=== PATIENT | male | born 2005 | race Caucasian/White ===

== ENCOUNTER 2023-03-06 15:06 | Emergency (ER) | payer BC ==
[~2023-03-06] VITALS: Ht 170.2 cm; Wt 99.8 kg
[2023-03-06 15:10] VITALS: BP_SYST 127
--- NOTE | 2023-03-06 15:10 | NUR ---
Patient triaged and placed in waiting room. VSS and patient appears in no acute distress at this time. Accompanied by SELF, awaiting available bed, and MD notified of need for MSE.
--- NOTE | 2023-03-06 15:10 | NUR ---
ER DR. COTTER EXAMINING PT IN TRIAGE
--- NOTE | 2023-03-06 16:20 | NUR ---
Patient to ER bed CH.1 to gown for evaluation. Side rails up.
--- NOTE | 2023-03-06 16:27 | NUR ---
COVID AND INFLUENZA SWABS DONE AND SENT TO LAB
--- NOTE | 2023-03-06 17:24 | NUR ---
Assuming care of patient
[2023-03-06] MEDS ORDERED: IBUP-1971 PO (17:39)
[2023-03-06] MEDS ORDERED: PSEU30TA36 PO (17:39)
--- NOTE | 2023-03-06 17:53 | NUR ---
Patient given written and verbal discharge instructions and verbalizes understanding. ER MD discussed with patient the results and treatment provided. Patient in stable condition. ID arm band removed. Rx of Ibuprofen and Sudafed sent to pharmacy on file. Patient educated on pain management and to follow up with PMD. Pain Scale . Opportunity for questions provided and answered. Patient walked out stable a&ox4
== END 2023-03-06 17:53 | disposition home or self-care (01) ==
LOC: SED 15:06
DX: J40 Bronchitis, not specified as acute or chronic (principal); R05.9 Cough, unspecified; R09.81 Nasal congestion; J02.9 Acute pharyngitis, unspecified; Z88.1 Allergy status to other antibiotic agents; Z79.899 Other long term (current) drug therapy; Z20.822 Contact with and (suspected) exposure to COVID-19
CPT/HCPCS: 36415; 71045; 99284

== ENCOUNTER 2024-05-02 20:38 | Emergency (ER) | payer BC ==
[~2024-05-02] VITALS: Ht 172.7 cm; Wt 127.0 kg
[2024-05-02 20:38] VITALS: BP_SYST 162; PULSE 105; RESP 20; TEMP 98; O2SAT 95
[~2024-05-02 20:38] MED LIST: IBUP-1971 PO; PSEU30TA36 PO
[2024-05-02] MEDS: ASPIRIN 325 MG TABLET PO ONE (20:52)
[2024-05-02 21:01] LABS: BASOPHILS # (AUTO) 0.1 K/uL (0.0-0.2); BASOPHILS % (AUTO) 0.5 % (0.0-2.0); EOSINOPHILS # (AUTO) 0.7 K/uL (0.0-0.4); EOSINOPHILS % (AUTO) 4.9 % (0.0-4.0); HEMATOCRIT 47.8 % (36-54); LYMPHOCYTES # (AUTO) 2.6 K/uL (1.0-5.5); LYMPHOCYTES % (AUTO) 18.9 % (20.5-51.5); MEAN CORPUSCULAR HEMOGLOBIN 28 pg (27-31); MEAN CORPUSCULAR HGB CONC 33 % (32-36); MEAN CORPUSCULAR VOLUME 85 fL (79.0-98.0); MONOCYTES # (AUTO) 1.3 K/uL (0.0-1.0); MONOCYTES % (AUTO) 9.2 % (1.7-9.3); NEUTROPHILS # (AUTO) 9.2 K/uL (1.8-7.7); NEUTROPHILS % (AUTO) 66.5 % (40.0-70.0); PLATELET COUNT (AUTO) 316 K/uL (130-430); RED BLOOD CELL COUNT(AUTO) 5.65 MIL/uL (4.2-6.2); RED CELL DISTRIBUTION WIDTH 14.1 % (9.0-15.0); WHITE BLOOD COUNT (AUTO) 13.8 K/uL (4.5-11.0)
[2024-05-02 21:20] LABS: ANION GAP 6 (5-15); CARBON DIOXIDE 28 mmol/L (23-29); CHLORIDE 104 mmol/L (98-107); CREATININE 1.05 mg/dL (0.55-1.30); GFR AFRICAN AMERICAN 116 mL/min (>90); GFR NON AFRICAN-AMERICAN 96 mL/min (>90); GLUCOSE 124 mg/dL (74-106); POTASSIUM 4.1 mmol/L (3.5-5.1); SODIUM SERUM 138 mmol/L (136-145); UREA NITROGEN, BLOOD 17 mg/dL (8-21)
[2024-05-02 22:50] VITALS: PULSE 78; RESP 20; TEMP 98.6; O2SAT 98
[2024-05-02 22:59] VITALS: BP_SYST 154
== END 2024-05-02 22:50 | disposition home or self-care (01) ==
LOC: SED 20:38
DX: R07.9 Chest pain, unspecified (principal); Z88.0 Allergy status to penicillin
CPT/HCPCS: 36415; 71045; 80048; 84484; 85025; 93005; 99285

== ENCOUNTER 2024-06-09 18:54 | Inpatient (IN) | payer BC ==
[~2024-06-09] VITALS: Ht 172.7 cm; Wt 140.6 kg
[2024-06-09 19:16] VITALS: BP_SYST 134; PULSE 115; RESP 16; TEMP 98.7; O2SAT 95
[2024-06-09 20:26] LABS: BILIRUBIN,URINE NEGATIVE (NEGATIVE); BLOOD, URINE 1+ (NEGATIVE); CLARITY/URINE CLEAR (CLEAR); COLOR,URINE YELLOW (YELLOW); GLUCOSE,URINE NEGATIVE (NEGATIVE); KETONES,URINE NEGATIVE (NEGATIVE); LEUKOCYTE ESTERASE ,URINE NEGATIVE (NEGATIVE); NITRITE, URINE NEGATIVE (NEGATIVE); PH,URINE 5.5 (5.0-8.0); PROTEIN URINE 2+ (NEGATIVE); UROBILINOGEN,URINE 0.2 (0.2-1.0)
[2024-06-09 20:26] LABS: BASOPHILS # (AUTO) 0.1 K/uL (0.0-0.2); BASOPHILS % (AUTO) 0.5 % (0.0-2.0); EOSINOPHILS # (AUTO) 0.3 K/uL (0.0-0.4); EOSINOPHILS % (AUTO) 2.5 % (0.0-4.0); HEMATOCRIT 48.9 % (36-54); HEMOGLOBIN 16.5 g/dL (14.0-18.0); LYMPHOCYTES # (AUTO) 1.8 K/uL (1.0-5.5); LYMPHOCYTES % (AUTO) 16.6 % (20.5-51.5); MEAN CORPUSCULAR HEMOGLOBIN 29 pg (27-31); MEAN CORPUSCULAR HGB CONC 34 % (32-36); MEAN CORPUSCULAR VOLUME 86 fL (79.0-98.0); MONOCYTES % (AUTO) 8.8 % (1.7-9.3); NEUTROPHILS # (AUTO) 7.9 K/uL (1.8-7.7); NEUTROPHILS % (AUTO) 71.6 % (40.0-70.0); PLATELET COUNT (AUTO) 305 K/uL (130-430); RED CELL DISTRIBUTION WIDTH 14.2 % (9.0-15.0)
[2024-06-09 20:56] LABS: ALANINE AMINOTRANSFERASE 52 U/L (12-78); ALBUMIN 3.7 g/dL (3.4-4.8); ANION GAP 8 (5-15); ASPARTATE AMINOTRANSFERASE 21 U/L (10-37); BILIRUBIN,DIRECT 0.1 mg/dL (0.0-0.3); CALCIUM 9.1 mg/dL (8.4-11.0); CARBON DIOXIDE 25 mmol/L (23-29); CHLORIDE 106 mmol/L (98-107); CREATININE 0.94 mg/dL (0.55-1.30); GFR AFRICAN AMERICAN 132 mL/min (>90); GFR NON AFRICAN-AMERICAN 109 mL/min (>90); GLUCOSE 132 mg/dL (74-106); LIPASE 49 U/L (16-77); SODIUM SERUM 139 mmol/L (136-145); TOTAL BILIRUBIN 0.3 mg/dL (0.0-1.0); TOTAL PROTEIN, SERUM 7.9 g/dL (6.4-8.3); UREA NITROGEN, BLOOD 24 mg/dL (8-21)
[2024-06-09 20:57] LABS: BARBITURATE, URINE NEGATIVE (NEG <=200); BENZODIAZEPINE, URINE NEGATIVE (NEG <=150); CANNABINOID, URINE NEGATIVE (NEG <=50); COCAINE, URINE NEGATIVE (NEG <=150); METHAMPHETAMINES SCREEN,URINE NEGATIVE (NEG <=500); OPIATE, URINE NEGATIVE (NEG <=100); PHENCYCLIDINE SCREEN,URINE NEGATIVE (NEG <=25); UR TRICYCLIC ANTIDEPRESSANTS NEGATIVE (NEG <=300); URINE AMPHETAMINE NEGATIVE (NEG <=500); URINE METHADONE NEGATIVE (NEG <=200); URINE OXYCODONE SCREEN NEGATIVE (NEG <=100)
[2024-06-09 20:59] LABS: ALCOHOL, BLOOD < 3 mg/dL (<10)
[2024-06-09 21:24] LABS: RBC,URINE 0-3 /HPF (0-3); WBC,URINE 0-3 /HPF (0-3)
[2024-06-09 21:25] LABS: BACTERIA,URINE RARE /HPF (None Seen); FINE GRANULAR CASTS,URINE 0-10 /LPF (None Seen); MUCUS,URINE 1+ /LPF (None Seen)
[2024-06-09] MEDS ORDERED: HYDROmorphone 1 MG/ML INJ. CARTRIDGE IVP PRN (22:15)
[2024-06-09] MEDS ORDERED: ONDANSETRON HCL 4 MG/2 ML VIAL IVP PRN (22:15)
[2024-06-09] MEDS: metroNIDAZOLE 500 mg/NS 100 ML IV ONE (23:11)
[2024-06-09] MEDS: D5/0.45 NS 1,000 ML IV SCH (23:16)
[2024-06-10 00:22] VITALS: BP_SYST 125; PULSE 85; RESP 18; TEMP 98.4; O2SAT 100
[2024-06-10] MEDS: metroNIDAZOLE 500 mg/NS 100 ML IV ONE (05:49)
[2024-06-10] MEDS: metroNIDAZOLE 500 mg/NS 100 ML IV SCH (05:59)
[2024-06-10 08:01] VITALS: BP_SYST 124; PULSE 78; RESP 17; TEMP 98.3; O2SAT 97
[2024-06-10 08:02] VITALS: O2SAT 99
[2024-06-10 09:19] LABS: INR 1.1 (0.80-1.20); PROTHROMBIN TIME 11.8 SECS (9.5-12.5)
[2024-06-10 12:22] VITALS: BP_SYST 130; PULSE 90; RESP 17; TEMP 98.2; O2SAT 98
[2024-06-10] MEDS ORDERED: ACETAMINOPHEN I.V. 1000 MG 100 ML IV ONE (13:36)
[2024-06-10] MEDS ORDERED: METOCLOPRAMIDE HCL 10 MG/2 ML VIAL IVP PRN (13:45)
[2024-06-10] MEDS ORDERED: MEPERIDINE HCL/PF 25 MG/ML DISP.SYRIN IVP PRN (13:45)
[2024-06-10] MEDS ORDERED: HYDROmorphone 1 MG/ML INJ. CARTRIDGE IVP PRN ×3 (13:45→14:15)
[2024-06-10] MEDS ORDERED: LR 1,000 ML IV SCH (13:45)
[2024-06-10] MEDS ORDERED: DEXAMETHASONE SOD PHOSPHATE 4 MG/ML VIAL ONE (14:08)
[2024-06-10] MEDS ORDERED: HYDROcodone/ACETAMIN 5-325 MG TAB (NORCO/ VICODIN) PO PRN (14:15)
[2024-06-10 16:01] VITALS: BP_SYST 126; PULSE 80; RESP 16; TEMP 98.4; O2SAT 97
[2024-06-10 20:00] VITALS: BP_SYST 131; PULSE 107; RESP 18; TEMP 98.4; O2SAT 96
[2024-06-10] MEDS: metroNIDAZOLE 500 MG TABLET PO SCH (21:19)
[2024-06-10] MEDS: LEVOFLOXACIN 250 MG/D5W 50 ML IV SCH (21:27)
[2024-06-10] MEDS ORDERED: LEVOFLOXACIN 250 MG/D5W 50 ML IV SCH (22:00)
[2024-06-11] VITALS: BP_SYST 117; PULSE 70; RESP 18; TEMP 98.7; O2SAT 94
[2024-06-11 08:01] VITALS: O2SAT 99
[2024-06-11 08:05] VITALS: BP_SYST 114; PULSE 80; RESP 16; TEMP 97.6; O2SAT 96
[2024-06-11 11:37] VITALS: BP_SYST 114; PULSE 77; RESP 18; TEMP 97.5; O2SAT 98
[2024-06-11 12:11] VITALS: BP_SYST 115; PULSE 77; RESP 17; TEMP 98.2; O2SAT 99
== END 2024-06-11 12:00 | disposition home or self-care (01) | DRG 398 ==
LOC: SED 18:54 → STU 23:45 → SMU 06-10 00:27 → STU 06-10 00:28
PROVIDERS: ADMIT Specialist; ATTEND Specialist
PROC: 0DTJ4ZZ Resection of Appendix, Percutaneous Endoscopic Approach (ICD-10-PCS; principal; 2024-06-10 13:11)
DX: K35.80 Unspecified acute appendicitis (principal); R65.10 Systemic inflammatory response syndrome (SIRS) of non-infectious origin without acute organ dysfunction; Z88.0 Allergy status to penicillin; Z79.899 Other long term (current) drug therapy
CPT/HCPCS: 36415; 80048; 80076; 80307; 81000; 81001; 81015; 83690; 85025; 85610; 87081; 88304; 99285; C1727; G0378; G0482; J0131; J1100; J1885; J1956; J2001; J2405; J2704; J3010; J3465; J3490; J7030